=== PATIENT | female | born 1970 | race Caucasian/White ===

== ENCOUNTER 2016-09-05 20:51 | Emergency (ER) | payer SELFPAY ==
[2016-09-05] MEDS ORDERED: Lidocaine 1% 20 ML MDV ONE (21:10)
[2016-09-05] MEDS ORDERED: Triple Antibiotic Oint 1 GM Packet ONE (21:24)
== END 2016-09-05 21:35 | disposition home or self-care (01) ==
LOC: NAV ERS 20:51
DX: S61.212A Laceration without foreign body of right middle finger without damage to nail, initial encounter (principal); E03.9 Hypothyroidism, unspecified; F17.210 Nicotine dependence, cigarettes, uncomplicated; Z79.899 Other long term (current) drug therapy; W45.8XXA Other foreign body or object entering through skin, initial encounter
CPT/HCPCS: 12001; J2001

== ENCOUNTER 2016-09-06 09:29 | Emergency (ER) | payer SELFPAY ==
[2016-09-06] MEDS ORDERED: Bacitracin Zinc 1 Packet ONE (09:48)
== END 2016-09-06 09:59 | disposition home or self-care (01) ==
LOC: NAV ERS 09:29
DX: S61.212A Laceration without foreign body of right middle finger without damage to nail, initial encounter (principal); E03.9 Hypothyroidism, unspecified; F17.210 Nicotine dependence, cigarettes, uncomplicated; Z79.899 Other long term (current) drug therapy; W45.8XXA Other foreign body or object entering through skin, initial encounter
CPT/HCPCS: 99282